=== PATIENT | male | born 1950 | race Caucasian/White ===

== ENCOUNTER 2018-12-10 19:15 | Emergency (ER) | payer MEDICARE, SELFPAY ==
[2018-12-10 19:20] VITALS: BP 140/80; PULSE 75; RESP 15; TEMP 36.4; O2SAT 100; BMI 20.6
--- NOTE | 2018-12-10 19:39 | ED_ITS ---
HPI - Wound/Laceration General Chief Complaint: Wound/Laceration Stated Complaint: left leg wound, thinks infection Time Seen by Provider: 12/10/18 19:25 Source: patient Mode of arrival: ambulatory Limitations: no limitations History of Present Illness HPI narrative: Patient is a 68-year-old male who presents with a left leg wound. He says he was going up stairs a week ago when he cut it on something metal. It was healing with applying Neosporin on it. Last night he woke up in a sweat and saw that his wound was draining and that his ankle was swollen this morning. He has had no other fevers today. It is draining it is mildly erythematous he is not a diabetic. Related Data Previous Rx's Medication Instructions Recorded doxycycline hyclate 100 mg PO BID #14 cap 12/10/18 Allergies Allergy/AdvReac Type Severity Reaction Status Date / Time No Known Drug Allergies Allergy Verified 12/10/18 19:44 Review of Systems Review of Systems GENERAL: Denies chills,fever HEENT: Denies throat pain RESPIRATORY: Denies dyspnea, cough, wheezing CARDIOVASCULAR: Denies chest pain, palpitations GASTROINTESTINAL: Denies nausea, vomiting MUSCULOSKELETAL: Denies extremity pain, injury SKIN: See HPI NEUROLOGIC: Denies weakness, dizziness, headache, numbness 8 point review of systems is negative except for those stated above and HPI FOR[facility] Medical History Atrial fibrillation (Acute) Social History Smoking Status: Never smoker Social History Smoking Status: Never smoker Exam Initial Vital Signs Initial Vital Signs: Vital Signs Temperature 97.6 F 12/10/18 19:20 Pulse Rate 75 12/10/18 19:20 Respiratory Rate 15 12/10/18 19:20 Blood Pressure 140/80 12/10/18 19:20 Pulse Oximetry 100 12/10/18 19:20 GENERAL: Well-appearing, well-nourished and in no acute distress. CARDIOVASCULAR: peripheral pulses in tact, cap refill <2 sec RESPIRATORY: No respiratory distress, speaks in full sentences without difficulty EXTREMITIES: Normal range of motion, no clubbing. Left ankle is swollen good distal pulse. Neurovascularly intact NEUROLOGICAL: Cranial nerves II through XII grossly intact. Normal gait and speech. SKIN: Left leg 4cm by 1 cm draining minimally erythematous around the wound edges. No significant erythema. Course Orders Ordered: ED Orders 12/10/18 19:25 Wound Culture and Gram Stain Stat Discontinued Medications Diphtheria/Tetanus/Acell Pertussis (Adacel) 0.5 ml IM .ONCE ONE Stop: 12/10/18 19:32 Last Admin: 12/10/18 19:45 Dose: 0.5 ml Doxycycline Hyclate (Vibramycin) 100 mg PO NOW ONE Stop: 12/10/18 19:57 Last Admin: 12/10/18 19:59 Dose: 100 mg Vital Signs - 8 hr 12/10/18 19:20 12/10/18 20:05 Temperature 97.6 F 97.6 F Pulse Rate 75 75 Respiratory Rate 15 16 Blood Pressure 140/80 133/83 Pulse Oximetry 100 100 MDM - Wound/Laceration MDM Narrative Medical decision making narrative: At this time patient is afebrile he is not septic. He does have drainage from the wound but has very scant minimal erythema around it. This time I see no indication for blood work he is not immunocompromised not diabetic. At this time I think can be treated conservatively as outpatient with oral antibiotics. 1st dose was given in the ED. I discussed with him he needs his INR checked well on antibiotics. He understands and agrees to this along with his daughter. Discharge Plan Departure Patient Disposition: Home Clinical Impression: Leg wound, left Qualifiers: Encounter type: initial encounter Qualified Code(s): S81.802A - Unspecified open wound, left lower leg, initial encounter Discharge Date/Time: 12/10/18 20:03 Interventions: ED Discharge Assessment Last Done: 12/10/18 20:05 Instructions: DI for Wound Infection Activity Restrictions/Additional Instructions: *You have been diagnosed with left wound infection *What to do: NEED TO HAVE INR CHECKED WHILE TAKING ANTIBIOTICS AND AFTER ANTIBIOTICS A CAN AFFECT THE INR *Continue to take medications as directed Doxycycline 100 mg twice a day for 7 *Follow up with your primary care provider in 2-3 days at [facility] *Return to ER if you should have increasing redness, fever, confusion, worsening drainage or any new, worsening or concerning symptoms Prescriptions: New doxycycline hyclate 100 mg capsule 100 mg PO BID Qty: 14 RF: 0
[2018-12-10] MEDS: TET,DIPH,PERTUSS(ACELL),VAC/PF 0.5 ML SYRINGE IM (19:45)
[2018-12-10] MEDS: DOXYCYCLINE HYCLATE 100 MG TABLET PO (19:59)
[2018-12-10 20:05] VITALS: BP 133/83; PULSE 75; RESP 16; TEMP 36.4; O2SAT 100
== END 2018-12-10 20:03 | disposition home or self-care (01) ==
PROVIDERS: Emergency Provider Emergency Medicine
DX: S81.802A Unspecified open wound, left lower leg, initial encounter (principal); W26.8XXA Contact with other sharp object(s), not elsewhere classified, initial encounter; Z23 Encounter for immunization
CPT/HCPCS: 87070; 87075; 87077; 87147; 87186; 87205; 90471; 99283; 90715